=== PATIENT | female | born 1955 | race Hispanic/Latino ===

== ENCOUNTER 2017-02-23 09:16 | Observation (INO) | payer MEDICARE ==
[2017-02-23] MEDS ORDERED: Sodium Chloride 0.9% 1,000 ML IV STA (09:45)
--- NOTE | 2017-02-23 09:45 | ED PDOC ---
Arrival/HPI - General Chief Complaint: Hip Pain Time Seen by Provider: 02/23/17 09:44 Historian: Patient - History of Present Illness Narrative History of Present Illness (Text): 02/23/17 09:44 This 61 yo female with pmh tachycardia, s/p nephrectomy, presents to this ED c/ o myalgias, left hip pain, fever, feeling sob since this morning. Patient stated she was treated for UTI last week. She took Cipro for 3 days, which caused her to have diarrhea for 2 days. Patient denies recent travel, leg swelling, or cp. Patient is taking Toprol for tachycardia. Time/Duration: Other (see hpi) Context: Home Past Medical History - Provider Review Nursing Documentation Reviewed: Yes - Infectious Disease Hx of Infectious Diseases: None - Cardiac Hx Cardiac Disorders: Yes Other/Comment: tachycardia - Pulmonary Hx Respiratory Disorders: No - Neurological Hx Neurological Disorder: No - HEENT Hx HEENT Disorder: No - Renal Hx Renal Disorder: Yes Other/Comment: donated Kidney in 1999. nephrectomy - Endocrine/Metabolic Hx Endocrine Disorders: No - Hematological/Oncological Hx Blood Disorders: No - Integumentary Hx Dermatological Disorder: No - Musculoskeletal/Rheumatological Hx Musculoskeletal Disorders: No - Gastrointestinal Hx Gastrointestinal Disorders: No - Genitourinary/Gynecological Hx Genitourinary Disorders: Yes Other/Comment: ecoli in urine - Psychiatric Hx Psychophysiologic Disorder: No Hx Substance Use: No - Surgical History Hx Orthopedic Surgery: Yes (L hip r/p) Other/Comment: nephrectomy, kidney donation, L hip sx x3 with 3rd being a replacement. - Anesthesia Hx Anesthesia: Yes Hx Anesthesia Reactions: No Family/Social History - Physician Review Nursing Documentation Reviewed: Yes Family/Social History: No Known Family HX Smoking Status: Never Smoked Hx Alcohol Use: Yes Frequency of alcohol use: Socially Hx Substance Use: No Allergies/Home Meds Allergies/Adverse Reactions: Allergies No Known Allergies Allergy (Verified 02/23/17 09:26) Home Medications: Home Meds Medication Instructions Recorded Confirmed Atorvastatin [Lipitor] 20 mg PO DAILY 02/23/17 02/23/17 Celecoxib [Celebrex] 50 mg PO DAILY 02/23/17 02/23/17 Metoprolol Succinate [Toprol XL] 100 mg PO DAILY 02/23/17 02/23/17 Review of Systems - Review of Systems Constitutional: Fatigue, Fevers. absent: Weight Change Eyes: Normal. absent: Vision Changes ENT: Normal. absent: Sore Throat Respiratory: Normal, SOB. absent: Cough, Sputum, Wheezing Cardiovascular: Normal, Other (pmh tachycardia). absent: Chest Pain, Palpitations, Edema, Calf Pain, KHAN, Orthopnea, Syncope Gastrointestinal: Normal. absent: Abdominal Pain, Nausea, Vomiting Genitourinary Female: Normal. absent: Dysuria, Frequency, Hematuria, Vaginal Bleeding, Vaginal Discharge Musculoskeletal: Myalgias, Other (left hip pain) Skin: Normal. absent: Rash Neurological: Normal. absent: Headache, Dizziness, Focal Weakness, Gait Changes , Speech Changes Endocrine: Normal Hemo/Lymphatic: Normal Psychiatric: Normal Physical Exam Vital Signs Temp Pulse Resp BP Pulse Ox 02/23/17 13:17 81 18 115/65 98 02/23/17 12:16 89 18 117/61 98 02/23/17 11:16 98.7 F 91 H 18 115/58 L 98 02/23/17 09:16 99.7 F H 100 H 19 113/52 L 98 Temperature: Febrile Blood Pressure: Normal Pulse: Regular Respiratory Rate: Normal Appearance: Positive for: Well-Appearing, Non-Toxic, Comfortable Pain Distress: None Mental Status: Positive for: Alert and Oriented X 3 - Systems Exam Head: Present: Atraumatic, Normocephalic Pupils: Present: PERRL Extroacular Muscles: Present: EOMI Conjunctiva: Present: Normal Mouth: Present: Moist Mucous Membranes Pharnyx: Present: Normal. No: ERYTHEMA, EXUDATE, TONSILS ENLARGED Neck: Present: Normal Range of Motion, Trachea Midline. No: Meningeal Signs Respiratory/Chest: Present: Clear to Auscultation, Good Air Exchange. No: Respiratory Distress, Accessory Muscle Use, Wheezes, Retracting, Rhonchi Cardiovascular: Present: Regular Rate and Rhythm, Normal S1, S2. No: Murmurs Abdomen: Present: Normal Bowel Sounds. No: Tenderness, Distention, Peritoneal Signs, Rebound, Guarding Back: Present: Normal Inspection. No: CVA Tenderness Upper Extremity: Present: Normal Inspection, Normal ROM, Neurovascularly Intact , Capillary Refill < 2s. No: Cyanosis, Edema Lower Extremity: Present: Normal Inspection, NORMAL PULSES, Normal ROM, Neurovascularly Intact, Capillary Refill < 2 s. No: Edema, CALF TENDERNESS Neurological: Present: GCS=15, CN II-XII Intact, Speech Normal, Motor Func Grossly Intact, Normal Sensory Function, Normal Cerebellar Funct, Gait Normal, Memory Normal Skin: Present: Warm, Dry, Normal Color. No: Rashes Psychiatric: Present: Alert, Oriented x 3 Medical Decision Making ED Course and Treatment: 02/23/17 13:[address] Mcmahan regarding patient symptoms, labs results. I told Dr. Mcmahan that patient continues with generalized pain, and feeling to fatigue to ambulate. He agrees with plan for observation. Re-evaluation Time: 13:30 Reassessment Condition: Re-examined, Improving,but remains with symptoms - Lab Interpretations Lab Results: 02/23/17 09:45 02/23/17 10:00 Lab Results 02/23/17 12:30: Urine Color Light yellow, Urine Appearance Clear, Urine pH 6.0, Ur Specific Whitney <= 1.005, Urine Protein Negative, Urine Glucose (UA) Negative, Urine Ketones Negative, Urine Blood Negative, Urine Nitrate Negative, Urine Bilirubin Negative, Urine Urobilinogen 0.2, Ur Leukocyte Esterase Trace H , Urine RBC 0 - 2, Urine WBC 0 - 2, Ur Epithelial Cells 0 - 2, Urine Bacteria Rare 02/23/17 10:00: Sodium 138, Potassium 3.0 L, Chloride 108 H, Carbon Dioxide 24, Anion Gap 9 L, BUN 14, Creatinine 0.6, Est GFR ( Amer) > 60, Est GFR (Non -Af Amer) > 60, Random Glucose 130 H, Calcium 8.6, Total Bilirubin 0.4, AST 38, ALT 44, Alkaline Phosphatase 98, Lactate Dehydrogenase 421, Total Creatine Kinase 77, Troponin I < 0.01, Total Protein 6.2, Albumin 3.2, Globulin 3.0, Albumin/Globulin Ratio 1.1, Lipase 67 02/23/17 09:45: WBC 12.5 H, RBC 4.24, Hgb 12.2, Hct 36.9, MCV 87.0, MCH 28.8, MCHC 33.1, RDW 14.2, Plt Count 233, MPV 9.6, Gran % 75.2 H, Lymph % (Auto) 16.1 L, [place] % (Auto) 7.1 H, Eos % (Auto) 1.4 L, Baso % (Auto) 0.2, Gran # 9.36 H, Lymph # 2.0, [place] # 0.9 H, Eos # 0.2, Baso # 0.03 I have reviewed the lab results: Yes Interpretation: Abnormal lab values (hypokalemia) - RAD Interpretation Radiology Orders: 02/23/17 09:47 CHEST PORTABLE [RAD] Stat 02/23/17 09:48 Hip Bilateral [HIP MIN 3V W/ PELVIS MARIE] [RAD] Stat - EKG Interpretation Interpreted by ED Physician: Yes (NSR @ 83 bpm. Normal interval) Type: 12 lead EKG Comparison: No previous EKG avail. - Medication Orders Current Medication Orders: Acetaminophen (Tylenol 325mg Tab) 650 mg PO Q6H PRN PRN Reason: Pain, Mild (1-3) Ondansetron HCl (Zofran Inj) 4 mg IVP Q6H PRN PRN Reason: Nausea/Vomiting Discontinued Medications Acetaminophen (Tylenol 325mg Tab) 975 mg PO STAT STA Stop: 02/23/17 09:48 Last Admin: 02/23/17 10:06 Dose: 975 mg Famotidine (Pepcid) 20 mg IVP STAT STA Stop: 02/23/17 09:46 Last Admin: 02/23/17 10:07 Dose: 20 mg Sodium Chloride (Sodium Chloride 0.9%) 1,000 mls @ 1,000 mls/hr IV .Q1H STA Stop: 02/23/17 10:44 Last Admin: 02/23/17 10:08 Dose: 1,000 mls/hr Ketorolac Tromethamine (Toradol) 15 mg IVP STAT STA Stop: 02/23/17 09:48 Last Admin: 02/23/17 10:07 Dose: 15 mg Ondansetron HCl (Zofran Inj) 4 mg IVP STAT STA Stop: 02/23/17 09:46 Last Admin: 02/23/17 10:07 Dose: 4 mg Potassium Chloride (K-Dur 20 Meq Er Tab) 60 meq PO STAT STA Stop: 02/23/17 11:22 Last Admin: 02/23/17 11:59 Dose: 60 meq Disposition/Present on Arrival - Present on Arrival Any Indicators Present on Arrival: No History of DVT/PE: No History of Uncontrolled Diabetes: No Urinary Catheter: No History of Decub. Ulcer: No History Surgical Site Infection Following: None - Disposition Have Diagnosis and Disposition been Completed?: Yes Diagnosis: Intractable pain, Failure to thrive, Hypokalemia Disposition: HOSPITALIZED Disposition Time: 13:31 Patient Plan: Discharge Patient Problems: Current Active Problems Problem Status Onset Failure to thrive Acute Hypokalemia Acute Intractable pain Acute Condition: GOOD
[2017-02-23 10:18] LABS: ADD MANUAL DIFF? NO
[2017-02-23 10:35] LABS: BASO # 0.03 K/mm3 (0.0-2.0); BASO % 0.2 % (0.0-3.0); EOS # 0.2 (0.0-0.7); EOS % 1.4 % (1.5-5.0); GRAN # 9.36 (1.4-6.5); GRAN % 75.2 % (50.0-68.0); HEMATOCRIT 36.9 % (36.0-48.0); LYMPH % 16.1 % (22.0-35.0); MEAN CORPUSCULAR HEMOGLOBIN 28.8 pg (25.0-35.0); MEAN CORPUSCULAR HGB CONC 33.1 g/dl (31.0-37.0); MEAN PLATELET VOLUME 9.6 fl (7.0-11.0); MONO # 0.9 (0.1-0.6); MONO % 7.1 % (1.0-6.0); PLATELET COUNT 233 10^3/uL (120.0-450.0); RED CELL DISTRIBUTION WIDTH 14.2 % (11.5-14.5); WHITE BLOOD COUNT 12.5 10^3/ul (4.5-11.0)
[2017-02-23 11:11] LABS: ALB/GLOB RATIO 1.1 (1.1-1.8); ALKALINE PHOSPHATASE 98 U/L (38-133); ALT/SGPT 44 U/L (7-56); AST/SGOT 38 U/L (15-39); BILIRUBIN,TOTAL 0.4 mg/dL (0.2-1.3); BLOOD UREA NITROGEN 14 mg/dL (7-21); CALCIUM 8.6 mg/dL (8.4-10.5); CARBON DIOXIDE 24 mmol/L (21-33); CHLORIDE 108 mmol/L (98-107); GFR AFRICAN-AMERICAN > 60; GLUCOSE,RANDOM 130 mg/dL (70-110); LIPASE 67 U/L (23-300); SODIUM 138 mmol/L (132-148); TOTAL PROTEIN 6.2 g/dL (5.8-8.3)
[2017-02-23] MEDS ORDERED: Potassium Chloride 20 mEq ER Tab PO STA (11:21)
[2017-02-23 11:23] LABS: TROPONIN I < 0.01 ng/mL
[2017-02-23 12:52] LABS: URINE BILIRUBIN NEGATIVE (NEGATIVE); URINE BLOOD NEGATIVE (NEGATIVE); URINE GLUCOSE (UA) NEGATIVE (NEGATIVE); URINE KETONE NEGATIVE (NEGATIVE); URINE LEUKOCYTE ESTERASE TRACE Leu/uL (NEGATIVE); URINE PROTEIN NEGATIVE mg/dL (<30 mg/dL); URINE UROBILINOGEN 0.2 E.U./dL (<1 E.U./dL)
[2017-02-23 13:03] LABS: URINE APPEARANCE CLEAR (CLEAR); URINE COLOR LIGHT YELLOW (YELLOW)
[2017-02-23 13:06] LABS: URINE BACTERIA RARE (NEG); URINE EPITHELIAL CELLS 0 - 2 /hpf (0-5); URINE RBC 0 - 2 /hpf (0-2); URINE WBC 0 - 2 /hpf (0-6)
--- NOTE | 2017-02-23 14:32 | RAD ---
HISTORY: myalgias, sob COMPARISON: No prior. FINDINGS: LUNGS: Poor inspiration with low lung volumes, mild crowded bronchovascular markings and mild bibasilar atelectasis. PLEURA: No significant pleural effusion identified, no pneumothorax apparent. CARDIOVASCULAR: Normal. OSSEOUS STRUCTURES: No significant abnormalities. VISUALIZED UPPER ABDOMEN: Normal. OTHER FINDINGS: None. IMPRESSION: Poor inspiration with low lung volumes, mild crowded bronchovascular markings and mild bibasilar atelectasis.
--- NOTE | 2017-02-23 14:42 | RAD ---
PROCEDURE: Pelvis and bilateral hips dated 02/23/2017. History: Body pain. HISTORY: Body pain. COMPARISON: No prior study available for comparison TECHNIQUE: AP views of the pelvis and AP/ frogleg lateral views both hips performed. No prior study available for comparison. FINDINGS: The current study reveals left-sided total hip replacement. Cerclage wires surround the proximal stem component of within the proximal femur. Hardware appears intact and appropriately located without evidence of dislocation. No evidence of loosening or infection. . There is slight protrusio of the left acetabular roof There are somewhat heterogeneous cystic changes seen in the lateral margins of the left superior and inferior pubic rami nonspecific likely postoperative however. Right hip appears intact without evidence of acute displaced fracture nor dislocation. Right femoral head is appropriately located within the right acetabulum. Mild degenerative changes right hip with overgrowth of the superolateral margin of the right acetabular roof. . Impression: Status post left total hip replacement. No evidence hardware failure. IMPRESSION: Status post left total hip replacement. No evidence of hardware failure. There is slight protrusio of the residual left acetabular roof. There are also on sclerotic and cystic changes of the lateral margins of the left inferior and superior pubic rami likely postoperative sequela. No acute fracture seen.
[2017-02-23 16:47] VITALS: RESP 20
--- NOTE | 2017-02-23 17:24 | CARD ---
APPROVED REPORT EKG Measurement Heart [id number] <Conclusion> Normal sinus rhythm Minimal voltage criteria for LVH, may be normal variant Borderline ECG
[2017-02-23] MEDS ORDERED: Sodium Chloride 0.9% 1,000 ML IV SCH (17:45)
[2017-02-24 07:45] VITALS: BP 116/73; TEMP 97.9; O2SAT 94
[2017-02-24 08:41] LABS: HEMATOCRIT 34.5 % (36.0-48.0); MEAN CORPUSCULAR HEMOGLOBIN 28.3 pg (25.0-35.0); MEAN CORPUSCULAR HGB CONC 32.2 g/dl (31.0-37.0); MEAN PLATELET VOLUME 9.1 fl (7.0-11.0); RED CELL DISTRIBUTION WIDTH 14.4 % (11.5-14.5); WHITE BLOOD COUNT 9.8 10^3/ul (4.5-11.0)
[2017-02-24 08:50] LABS: ALB/GLOB RATIO 1.1 (1.1-1.8); ALKALINE PHOSPHATASE 103 U/L (38-133); ALT/SGPT 51 U/L (7-56); AST/SGOT 43 U/L (15-39); BILIRUBIN,TOTAL 0.6 mg/dL (0.2-1.3); BLOOD UREA NITROGEN 14 mg/dL (7-21); CALCIUM 8.8 mg/dL (8.4-10.5); CARBON DIOXIDE 23 mmol/L (21-33); CHLORIDE 113 mmol/L (98-107); GFR AFRICAN-AMERICAN > 60; GLUCOSE,RANDOM 106 mg/dL (70-110); POTASSIUM 3.9 mmol/L (3.6-5.0); SODIUM 142 mmol/L (132-148)
[2017-02-24 09:33] VITALS: PULSE 102
--- NOTE | 2017-02-24 09:44 | HP ---
CHIEF COMPLAINT AND HISTORY OF PRESENT ILLNESS: This is a 61-year-old female who is coming into the hospital complaining of diarrhea. She says that she was started on ciprofloxacin for a UTI a few day s ago by Dr. Castillo, her cornetist. The patient says that she had a nephrectomy in the past. She h as been having myalgias. She has left hip pain. She says she is feeling better after her overnight stay in the hospital. Her diarrhea has improved. She has no complaints of any fevers or chills, no nausea, no vomiting, no weakness in the arms or the legs. No dysuria or frequency. REVIEW OF SYSTEMS: All other review of symptoms is within normal limits except as mentioned. ALLERGIES: No known drug allergies. HOME MEDICATIONS: Lipitor, Celebrex, metoprolol. PAST SURGICAL HISTORY: Nephrectomy, left hip surgery x 3. PAST MEDICAL HISTORY: Dyslipidemia. SOCIAL HISTORY: She denies smoking, drinks socially. FAMILY HISTORY: Noncontributory. PHYSICAL EXAMINATION: VITAL SIGNS: Temperature is 97.9, pulse of 97, blood pressure 116/73, respirations 20, O2 saturation 94%. Height is 5 feet, weight is 155 pounds. BMI is 30.3. GENERAL: The patient is lying in bed, flat, and in no apparent distress. HEAD AND NECK EXAM: Atraumatic, normocephalic. Conjunctivae are pink. Throat clear and mouth with moist mucosa. Oropharynx benign. EYES: Extraocular movements are intact. PERRLA. NECK: Supple. No JVD, thyromegaly, or adenopathy. No bruits. HEART: S1 and S2 regular rate and rhythm. No murmurs, rubs, or gallops. LUNGS: Clear to auscultation bilaterally. No wheezing rales or rhonchi appreciated. No retractions on exam. ABDOMEN: Soft, nontender, nondistended. Bowel sounds are positive in all quadrants. No rebound. No hepatosplenomegaly. EXTREMITIES: No cyanosis, clubbing, or edema. NEUROLOGIC: No facial asymmetry, tongue is midline, no uvula deviation. Power is 5/5 in upper extre mity and 5/5 in lower extremity. Sensation is normal in upper extremity and lower extremity. PSYCHIATRIC: Awake, alert, oriented x 3. No anxiety or depression symptoms. Good insight. Normal affect. GENITOURINARY: No CVA tenderness VASCULAR: 2+ pulses in carotid and pedal pulses. SKIN: No erythema or abnormal nodules noted. SPINE: Normal curvature. LYMPHADENOPATHY: No anterior cervical or posterior cervical adenopathy. No inguinal adenopathy. LABORATORY DATA: White count of 12.5, hemoglobin 12.2, platelet count is 233. Chemistry shows the p otassium is 3.0. Hip x-ray shows status post left total hip replacement, no evidence of hardware failure. There is a slight protrusion on the residual left acetabular roof. EKG shows a heart rate of 83, sinus rhythm, no ST-T changes. ASSESSMENT: 1. Gastroenteritis secondary to antibiotics. 2. Hypokalemia. 3. Status post nephrectomy. 4. Dyslipidemia. PLAN: The patient is admitted, overnight was given hydration and potassium. She had a chest x-ray t hat showed no infiltrates. She is on Lipitor for dyslipidemia. She is on metoprolol. She is going to continue with Tylenol as needed. She is on Zofran. She is on a heart healthy diet. If her blood work is normal, we will send the patient home and have her follow up in the office in 1-2 weeks. Mason Mcmahan MD cc: [id number] TT: 02/24/2017 09:44:05 sd
[2017-02-24] MEDS ORDERED: Metoprolol Succinate 100 mg XL Tab PO SCH (10:00)
== END 2017-02-24 14:00 | disposition home or self-care (01) ==
LOC: ED 09:16 → ERH 13:29 → 5RNO 15:04
PROVIDERS: ADMIT Internal Medicine Nephrology; ATTEND Internal Medicine Nephrology
DX: K52.9 Noninfective gastroenteritis and colitis, unspecified (principal); E87.6 Hypokalemia; E78.5 Hyperlipidemia, unspecified; M25.552 Pain in left hip; R62.7 Adult failure to thrive; Z79.899 Other long term (current) drug therapy; Z90.5 Acquired absence of kidney; R00.0 Tachycardia, unspecified
CPT/HCPCS: 36415; 71010; 73522; 80053; 81001; 82550; 83615; 83690; 84484; 85025; 85027; 87086; 93005; 96361; 96374; 96375; 99285; G0378; J1885; J2405; J7040

== ENCOUNTER 2017-12-31 21:42 | Observation (INO) | payer MEDICARE ==
[2017-12-31 21:58] VITALS: BMI 29.2
--- NOTE | 2017-12-31 22:23 | ED PDOC ---
Arrival/HPI - General Chief Complaint: Palpitations Time Seen by Provider: 12/31/17 22:22 Historian: Patient - History of Present Illness Narrative History of Present Illness (Text): 12/31/17 22:28 62 year old female, whose past medical history includes tachycardia (on Toprol 100mg xl for many years), s/p nephrectomy, presents to the emergency department complaining with 3 weeks onset of palpitations. Past few weeks has become more frequent (especially over the last 3 days) and today reports her palpitations to be constant. Patient reports she felt a little weak and fatigue. She also reports feeling something in her throat but no cp/pressure/discomfort; She presents to the ER for further evaluation. Patient denies any exertional complaints, no fever, chills, sweats, shortness of breath, chest pain, abdominal pain, nausea, vomiting, diarrhea, numbness/tingling, urinary/bowel changes, gross bleeding, or any other complaints. pt denied LOC pt denied lightheadedness pt is here for further eval PMD: Dr. Mcmahan HTN specialist: Dr. Fernandez pt with hx of polio pt with chronic joint pains Time/Duration: > week (3 weeks ) Symptom Onset: Sudden Symptom Course: Unchanged, Worsening Activities at Onset: Light Context: Home Past Medical History - Provider Review Nursing Documentation Reviewed: Yes - Travel History Have you recently traveled outside [place] w/in the past 3 mons?: No - Past History Past History: No Previous - Infectious Disease Hx of Infectious Diseases: None - Tetanus Immunization Tetanus Immunization: Unknown - Reproductive Menopause: Yes Currently : No - Cardiac Hx Cardiac Disorders: Yes Other/Comment: tachycardia - Pulmonary Hx Respiratory Disorders: No - Neurological Hx Neurological Disorder: No - HEENT Hx HEENT Disorder: No - Renal Hx Renal Disorder: Yes Other/Comment: donated Kidney in 1999. nephrectomy - Endocrine/Metabolic Hx Endocrine Disorders: No - Hematological/Oncological Hx Blood Disorders: No - Integumentary Hx Dermatological Disorder: No - Musculoskeletal/Rheumatological Hx Musculoskeletal Disorders: No - Gastrointestinal Hx Gastrointestinal Disorders: No - Genitourinary/Gynecological Hx Genitourinary Disorders: Yes Other/Comment: ecoli in urine - Psychiatric Hx Psychophysiologic Disorder: No Hx Substance Use: No - Surgical History Hx Orthopedic Surgery: Yes (L hip r/p) Other/Comment: nephrectomy, kidney donation, L hip sx x3 with 3rd being a replacement. - Anesthesia Hx Anesthesia: Yes Hx Anesthesia Reactions: No Family/Social History - Physician Review Nursing Documentation Reviewed: Yes Family/Social History: No Known Family HX Smoking Status: Never Smoked Hx Alcohol Use: Yes Hx Substance Use: No Hx Substance Use Treatment: No Allergies/Home Meds Allergies/Adverse Reactions: Allergies No Known Allergies Allergy (Verified 12/31/17 21:58) Home Medications: Home Meds Medication Instructions Recorded Confirmed Metoprolol Succinate [Toprol XL] 100 mg PO DAILY 02/23/17 12/31/17 Omeprazole Magnesium [Prilosec Otc] 20 mg PO DAILY 12/31/17 12/31/17 Review of Systems - Physician Review All systems were reviewed & negative as marked: Yes - Review of Systems Constitutional: Fatigue. absent: Fevers, Night Sweats, Other (Chills) Eyes: Normal ENT: Normal Respiratory: absent: SOB Cardiovascular: Palpitations. absent: Chest Pain Gastrointestinal: absent: Abdominal Pain, Diarrhea, Nausea, Vomiting Genitourinary Female: absent: Dysuria, Frequency, Hematuria Musculoskeletal: Normal Skin: Normal Neurological: Normal. absent: Other (Numbness) Endocrine: Normal Hemo/Lymphatic: Normal Psychiatric: Normal Physical Exam Vital Signs Reviewed: Yes Vital Signs Temp Pulse Resp BP 12/31/17 22:48 91 H 119/87 12/31/17 22:38 123 H 128/82 12/31/17 22:37 123 H 128/86 12/31/17 22:05 98.7 F 120 H 17 129/84 Temperature: Afebrile Blood Pressure: Normal Pulse: Tachycardic Respiratory Rate: Normal Appearance: Positive for: Well-Appearing, Non-Toxic, Uncomfortable, Other (alert /awake, GCS = 15, oriented x 3, resting in bed, uncomfortable, NAD; cooperative) Pain Distress: None Mental Status: Positive for: Alert and Oriented X 3 - Systems Exam Head: Present: Atraumatic, Normocephalic Pupils: Present: PERRL, Other (no nystagmus, no photophobia, sclera anicteric, visual field intact b/l) Extroacular Muscles: Present: EOMI Conjunctiva: Present: Normal Ears: Present: Normal Mouth: Present: Moist Mucous Membranes, Normal Teeth, Other (uvula/tongue are midline, no exudate/lesions, no drooling/stridor, no dysphonia) Pharnyx: Present: Normal Nose (External): Present: Atraumatic Nose (Internal): Present: Normal Inspection Neck: Present: Normal Range of Motion, Trachea Midline, Other (intact ROM, no midline tenderness, no step off). No: Meningeal Signs, MIDLINE TENDERNESS, Paraspinal Tenderness Respiratory/Chest: Present: Clear to Auscultation, Good Air Exchange, Other ( CTA b/l, no w/r/r, no accessory muscle use noted, no tachypenia). No: Respiratory Distress, Accessory Muscle Use Cardiovascular: Present: Normal S1, S2, Tachycardic. No: Murmurs Abdomen: Present: Normal Bowel Sounds, Other (well nourished female, no focal tenderness, no masses/rebound/guarding/rigidity, no suarez's sign, no mcburney' s point tenderness). No: Tenderness, Distention, Peritoneal Signs Back: Present: Normal Inspection. No: CVA Tenderness, Midline Tenderness Upper Extremity: Present: Normal Inspection, Normal ROM, NORMAL PULSES, Neurovascularly Intact. No: Cyanosis, Edema Lower Extremity: Present: Normal Inspection, NORMAL PULSES, Neurovascularly Intact. No: Edema Neurological: Present: GCS=15, CN II-XII Intact, Speech Normal Skin: Present: Warm, Dry, Normal Color, Other (cap refill < 1sec, no ulcerations , no petechiae, no pallor). No: Rashes Psychiatric: Present: Alert, Oriented x 3, Normal Insight, Normal Concentration Medical Decision Making ED Course and Treatment: 12/31/17 22:36 Impression: 62 year old female presents complaining of 3 weeks onset palpitations that are more constant today. Patient report minimal weakness and fatigue. I have considered all differential diagnoses regarding patients chief medical complaints/clinical findings which include but are not limited to: Palpitations ACS r/o Thyroid Disfunction e/o hypovolemia. Unlikely coagulopathy. Plan: -- EKG -- Labs -- Chest X-ray -- Lopressor, IV Fluids -- Urinalysis -- Reassess and disposition Progress Notes: 1125pm after 1 bolus of metoprolol, pt felt improved pt states she felt easier pt remained chest pain free pt is recommended for admission pt is made aware of her medical results pt agrees with admission pt's vital signs are much improved paging Dr Mcmahan 12/31/17 23:[address] Mcmahan, made aware, agrees with admission/observation, will consult dr Goodwin in the morning Re-evaluation Time: 23:31 Reassessment Condition: Improved - Lab Interpretations Lab Results: 12/31/17 22:33 12/31/17 22:33 Lab Results 12/31/17 22:33: TSH 3rd Generation 4.06 12/31/17 22:33: Sodium 142, Potassium 3.9, Chloride 107, Carbon Dioxide 22, Anion Gap 17, BUN 20, Creatinine 0.7, Est GFR ( Amer) > 60, Est GFR (Non- Af Amer) > 60, Random Glucose 92, Calcium 9.6, Magnesium 2.1, Total Bilirubin 0.3, AST 31, ALT 35, Alkaline Phosphatase 107, Lactate Dehydrogenase 700 H, Total Creatine Kinase 85, Troponin I < 0.01, NT-Pro-B Natriuret Pep 134, Total Protein 6.9, Albumin 4.1, Globulin 2.8, Albumin/Globulin Ratio 1.5 12/31/17 22:33: PT 11.8, INR 1.06, APTT 29.9 12/31/17 22:33: WBC 11.0, RBC 4.80, Hgb 13.6, Hct 41.1, MCV 85.6, MCH 28.3, MCHC 33.1, RDW 14.4, Plt Count 280, MPV 9.0, Gran % 51.8, Lymph % (Auto) 37.2 H , Sanders % (Auto) 5.7, Eos % (Auto) 4.9, Baso % (Auto) 0.4, Gran # 5.68, Lymph # ( Auto) 4.1 H, Sanders # (Auto) 0.6, Eos # (Auto) 0.5, Baso # (Auto) 0.04 I have reviewed the lab results: Yes Interpretation: Abnormal lab values (elevated lactate dehydrogenase) - RAD Interpretation Narrative RAD Interpretations (Text): 12/31/17 23:35 CXR - rotated, NAD Radiology Orders: 12/31/17 22:28 CHEST PORTABLE [RAD] Stat Apple Packing Header: ED Physician - EKG Interpretation EKG Interpretation (Text): 12/31/17 23:36 Sinus tach at 120 bpm, normal axis, no ectopy, left atrial enlargement noted, left vent hypertrophy, no st-t changes, ABNL EKG; unchanged compare with old ekg 02/2017 Interpreted by ED Physician: Yes Type: 12 lead EKG Comparison: Similar to previous EKG - Medication Orders Current Medication Orders: Sodium Chloride (Sodium Chloride 0.9%) 1,000 mls @ 100 mls/hr IV .Q10H GABE Last Admin: 12/31/17 22:38 Dose: 100 mls/hr eMAR Start Stop Document 12/31/17 22:38 MS (Rec: 12/31/17 22:38 MS [id number]) Intravenous Solution Start Date 12/31/17 Start Time 22:38 Metoprolol Succinate (Toprol Xl) 100 mg PO DAILY GABE Discontinued Medications Metoprolol Tartrate (Lopressor) 5 mg IVP STAT STA Stop: 12/31/17 22:29 Last Admin: 12/31/17 22:37 Dose: 5 mg IVP Administration Document 12/31/17 22:37 MS (Rec: 12/31/17 22:38 MS [id number]) Charges for Administration # of IVP Administrations 1 MAR Pulse and Blood Pressure Document 12/31/17 22:37 MS (Rec: 12/31/17 22:38 MS [id number]) Pulse Pulse Rate (60-90) 123 Blood Pressure Blood Pressure (100/60-150/90) 128/86 - Scribe Statement The provider has reviewed the documentation as recorded by the Key Goss Provider Scribe Attestation: All medical record entries made by the Key were at my direction and personally dictated by me. I have reviewed the chart and agree that the record accurately reflects my personal performance of the history, physical exam, medical decision making, and the department course for this patient. I have also personally directed, reviewed, and agree with the discharge instructions and disposition. Disposition/Present on Arrival - Present on Arrival Any Indicators Present on Arrival: No History of DVT/PE: No History of Uncontrolled Diabetes: No Urinary Catheter: No History of Decub. Ulcer: No History Surgical Site Infection Following: None - Disposition Have Diagnosis and Disposition been Completed?: Yes Diagnosis: Palpitation, Elevated blood pressure reading Disposition: HOSPITALIZED Disposition Time: 23:32 Patient Plan: Admission, Observation Patient Problems: Current Active Problems Problem Status Onset Elevated blood pressure reading Acute Palpitation Acute Condition: STABLE Discharge Instructions (ExitCare): Hypotension (ED), Hypertension (ED) Referrals: Mason Mcmahan MD [Primary Care Provider] - Follow up with primary Forms: [employer] (Mongolian)
[2017-12-31] MEDS ORDERED: Metoprolol 1 mg/ml Inj IVP STA (22:28)
[2017-12-31] MEDS ORDERED: Sodium Chloride 0.9% 1,000 ML IV SCH (22:30)
[2017-12-31] MEDS ORDERED: Metoprolol 1 mg/ml Inj IVP ONE (22:32)
[2017-12-31 22:40] LABS: BASO # 0.04 K/mm3 (0.0-2.0); BASO % 0.4 % (0.0-3.0); EOS # 0.5 (0.0-0.7); EOS % 4.9 % (1.5-5.0); GRAN # 5.68 (1.4-6.5); GRAN % 51.8 % (50.0-68.0); HEMOGLOBIN 13.6 g/dL (12.0-16.0); LYMPH # 4.1 (1.2-3.4); LYMPH % 37.2 % (22.0-35.0); MEAN CELL VOLUME 85.6 fl (80.0-105.0); MEAN CORPUSCULAR HEMOGLOBIN 28.3 pg (25.0-35.0); MEAN CORPUSCULAR HGB CONC 33.1 g/dl (31.0-37.0); MONO # 0.6 (0.1-0.6); MONO % 5.7 % (1.0-6.0); RBC 4.8 10^6/uL (3.5-6.1); RED CELL DISTRIBUTION WIDTH 14.4 % (11.5-14.5)
[2017-12-31 22:52] LABS: ALB/GLOB RATIO 1.5 (1.1-1.8); ALBUMIN 4.1 g/dL (3.0-4.8); ALT/SGPT 35 U/L (7-56); AST/SGOT 31 U/L (14-36); BLOOD UREA NITROGEN 20 mg/dL (7-21); CALCIUM 9.6 mg/dL (8.4-10.5); GFR AFRICAN-AMERICAN > 60; GFR NON-AFRICAN AMERICAN > 60
[2017-12-31 22:56] LABS: INR 1.06 (0.93-1.08); PARTIAL THROMBOPLASTIN TIME 29.9 Seconds (25.1-36.5); PROTHROMBIN TIME 11.8 SECONDS (9.4-12.5)
[2017-12-31 23:02] LABS: B-TYPE NATRIURETIC PEPTIDE 134 pg/mL (0-450); TROPONIN I < 0.01 ng/mL
[2018-01-01 07:07] VITALS: BP 114/74; RESP 18; TEMP 97.4; O2SAT 99
--- NOTE | 2018-01-01 09:30 | RAD ---
HISTORY: palpitations COMPARISON: 02/23/2017 FINDINGS: LUNGS: No active pulmonary disease. PLEURA: No significant pleural effusion identified, no pneumothorax apparent. CARDIOVASCULAR: Normal. OSSEOUS STRUCTURES: No significant abnormalities. VISUALIZED UPPER ABDOMEN: Normal. OTHER FINDINGS: None. IMPRESSION: No active disease.
[2018-01-01] MEDS ORDERED: Metoprolol Succinate 100 mg XL Tab PO SCH (10:00)
[2018-01-01 10:17] VITALS: PULSE 83
--- NOTE | 2018-01-01 10:35 | CP.PCM.CON ---
History of Present Illness - History of Present Illness History of Present Illness: I feel okay, denies chest pain,denies shortness of breath Reason for consultation:Cardiac evaluation, tachycardia, complaining of palpitations x 3 weeks, felt weak and fatigue. Brief history of present illness: A 62 year old female,obese, who came in to the ER due to palpitations for 3 weeks. Described as more frequent palpitations for the past few days. History of polio, E.coli in urine, donated kidney in 1999, post nephrectomy, post left hip surgery x3 and last one was hip replacement.Denies chest pain and shortness of breath. Seen and examined by me and Dr. Goodwin Review of Systems - Constitutional Constitutional: As Per HPI - Cardiovascular Additional comments: Tachycardia,palpitations - Respiratory Additional comments: denies shortness of breath - Gastrointestinal Additional comments: denies nausea,denies vomiting - Genitourinary Additional comments: nephrectomy in 1999 denies pain of urination - Menstruation Menstruation: Post Menopausal - Neurological Additional comments: denies any problem - Endocrine Additional Comments: denies any problem Past Patient History - Infectious Disease Hx of Infectious Diseases: None - Tetanus Immunizations Tetanus Immunization: Unknown - Past Social History Smoking Status: Never Smoked - CARDIAC Hx Cardiac Disorders: Yes Hx Cardia Arrhythmia: Yes (tachycardia) - PULMONARY Hx Respiratory Disorders: No - NEUROLOGICAL Hx Neurological Disorder: No - HEENT Hx HEENT Problems: No - RENAL Hx Chronic Kidney Disease: Yes Other/Comment: donated Kidneyright in 1999. nephrectomy - ENDOCRINE/METABOLIC Hx Endocrine Disorders: No - HEMATOLOGICAL/ONCOLOGICAL Hx Blood Disorders: No - INTEGUMENTARY Hx Dermatological Problems: No - MUSCULOSKELETAL/RHEUMATOLOGICAL Hx Musculoskeletal Disorders: Yes (Polio in left foot, right shoulder tendon tear) Hx Falls: No Hx Unsteady Gait: Yes - GASTROINTESTINAL Hx Gastrointestinal Disorders: No - GENITOURINARY/GYNECOLOGICAL Hx Genitourinary Disorders: Yes Other/Comment: ecoli in urine - PSYCHIATRIC Hx Psychophysiologic Disorder: No Hx Substance Use: No - SURGICAL HISTORY Hx Surgeries: Yes Hx Orthopedic Surgery: Yes (L hip r/p) Other/Comment: nephrectomy, kidney donation, L hip sx x3 with 3rd being a replacement. - ANESTHESIA Hx Anesthesia: Yes Hx Anesthesia Reactions: No Meds Allergies/Adverse Reactions: Allergies Allergy/AdvReac Type Severity Reaction Status Date / Time No Known Allergies Allergy Verified 12/31/17 21:58 Results - Vital Signs Recent Vital Signs: Last Vital Signs Temp 97.4 F L 01/01/18 06:00 Pulse 83 01/01/18 06:00 Resp 18 01/01/18 06:00 BP 114/74 01/01/18 06:00 Pulse Ox 99 01/01/18 06:00 - Labs Result Diagrams: 12/31/17 22:33 12/31/17 22:33 Assessment & Plan - Assessment and Plan (Free Text) Assessment: A 62 year old female,obese, who came in to the ER due to palpitations for 3 weeks. Described as more frequent palpitations for the past few days. History of polio, E.coli in urine, donated kidney in 1999, post nephrectomy, post left hip surgery x3 and last one was hip replacement.Denies chest pain and shortness of breath. Heart rate in ER sinus tachycardia 120's -130's. Plan: IV Lopressor given in ER and heart rate controlled from 130's to 80's Normal sinus rhytm Will order ECHO to evaluate LV function Will start Lopressor 25 mg daily Will order TSH, lipid level, Hemoglobin A1C Continue current treatment Will follow up Thank you Dr. Donis for giving us the opportunity to take care of Dixie Mcgregor - Date & Time Date: 01/01/18 Time: 07:35
--- NOTE | 2018-01-01 11:19 | CARD ---
APPROVED REPORT EKG Measurement Heart [id number] <Conclusion> Sinus tachycardia Possible Left atrial enlargement Left ventricular hypertrophy Abnormal ECG
--- NOTE | 2018-01-01 16:37 | HP ---
CHIEF COMPLAINT AND HISTORY OF PRESENT ILLNESS: This is a 62-year-old female who has come into the hospital because she was having palpitations. The patient says she has a history of tachycardia and has been on Toprol 100 mg for years. She has a history of nephrectomy. She has been complaining of these palpitations on and off for the past few weeks. She says it was worse yesterday. She had found out that her was delayed in [place] on his way back to the [facility]. The patient has no complaints of any fevers or chills. No nausea, no vomiting. No dysuria or frequency. No nocturia. No weakness in the arms or the legs. No chest pain. REVIEW OF SYSTEMS: All other review of symptoms are within normal limits except that was mentioned. HOME MEDICATIONS: Toprol. PAST MEDICAL HISTORY: Polio, osteoarthritis and dyslipidemia. PAST SURGICAL HISTORY: Nephrectomy and left hip surgery. SOCIAL HISTORY: No history of smoking or drinking alcohol. FAMILY HISTORY: Noncontributory. PHYSICAL EXAMINATION VITAL SIGNS: Temperature is 97.4, pulse of 83, blood pressure is 114/74, respirations 18, O2 saturation 99%. GENERAL: The patient lying in bed, uncomfortable, and in no acute distress. HEENT: Atraumatic and normocephalic. Anicteric sclerae. Moist mucosa. [place] conjunctivae. No oral lesions. NECK: No JVD, anterior and posterior adenopathy, thyromegaly, or bruits. CARDIOVASCULAR: S1 and S2 regular. No murmur, rubs, or gallop. LUNGS: Clear to auscultation bilaterally. No wheezes, rales, or rhonchi. ABDOMEN: Bowel sounds are positive. Soft, nontender and nondistended. No hepatosplenomegaly. No rebound and no guarding EXTREMITIES: No cyanosis, clubbing, or edema. NEUROLOGIC: No facial asymmetry. Tongue is midline. No uvula deviation. Power is 5/5 upper extremity and lower extremity. Sensation intact in upper extremity and lower extremity. PSYCHIATRIC: She is awake, alert and oriented x3. No anxiety or depression. She has normal affect. GENITOURINARY: No CVA tenderness. VASCULAR: 2+ pulses in the carotid pulses and pedal pulses. SKIN: No erythema or nodules SPINE: Shows normal curvature. IMAGING STUDIES: EKG done shows sinus tachycardia of 120, normal axis, no ST-T changes. Chest x-ray done shows no infiltrates. ASSESSMENT: 1. Sinus tachycardia. 2. History of polio with residual deficit. 3. Dyslipidemia. PLAN: The patient is currently comfortable, overnight on telemetry. Her heart rate had gone back to normal. She is continuing on her metoprolol. I did speak to Dr. Goodwin regarding the case. The patient is going to be discharged home and will be followed up as an outpatient with her specialist and in my office in 1-2 weeks. Condition is stable. Activities increase as tolerated. We will also discontinue the patient's IV fluids. Mason Mcmahan MD
== END 2018-01-01 10:20 | disposition home or self-care (01) ==
LOC: ED 21:42 → ERH 23:31 → 3RNO 01-01 01:08
PROVIDERS: ADMIT Internal Medicine Nephrology; ATTEND Internal Medicine Nephrology
DX: R00.2 Palpitations (principal); E78.5 Hyperlipidemia, unspecified; E66.9 Obesity, unspecified; N18.9 Chronic kidney disease, unspecified; Z86.12 Personal history of poliomyelitis; Z90.5 Acquired absence of kidney; Z96.642 Presence of left artificial hip joint; Z68.29 Body mass index [BMI] 29.0-29.9, adult
CPT/HCPCS: 71045; 80053; 82550; 83615; 83735; 83880; 84443; 84484; 85025; 85610; 85730; 93005; 96374; 99285; G0378; J7040